=== PATIENT | female | born 1975 | race Caucasian/White ===

== ENCOUNTER → 2017-04-15 | Outpatient (CLI) | END | disposition home or self-care (01) ==

== ENCOUNTER 2017-07-02 05:53 | Day surgery (SDC) | END 2017-07-02 10:50 | disposition home or self-care (01) ==

== ENCOUNTER → 2017-07-13 | Outpatient (CLI) | END | disposition home or self-care (01) ==

== ENCOUNTER 2018-03-10 07:05 | Inpatient (IN) | payer OTHER ==
--- NOTE | 2018-03-09 07:45 | PREOPHP ---
DATE OF ADMISSION: 03/10/2018 This patient is coming on , 03/10/2018, for a surgical procedure. HISTORY OF PRESENT ILLNESS: This is a 43-year-old female, 0, para 0. This patient has seen me recently at the end of October due to pelvic pain, abnormal uterine bleeding, and heavy periods. The patient has been having anemia. Her periods are extremely heavy with clots. She had lived in [facility] for the last 30 years and she is getting [place] the states and moving to [place]. She req uests an alleviation of her pain and bleeding and ultrasound revealed that she had large pelvic rosalba s, for which an MRI was done. The MRI showed that there was an 8 cm left adnexal complex mass sugges tive of endometrioma and a right endometrioma of 3.3 cm. The uterus was anteverted 8 cm and there we re these adnexal masses. There were no inguinal lymphadenopathy, no pelvic lymphadenopathy, no ascit es, and there was no suspicious uterine mass. The patient is undergoing a laparoscopy to determine t he etiology of these masses and if they are endometriomas, to try to remove them, it is possibly to g et the endometriomas treated for her complaint of pelvic pain and bleeding. The patient has no signs of fibroids on the MRI but the consistency of the uterus by pelvic examination was of a fibroid. James wright was advised for the laparoscopy and with the possibility of an exploratory laparotomy. PAST MEDICAL HISTORY: She had a left knee surgery and an appendectomy. ALLERGIES: SHE HAS NO ALLERGIES. MEDICATIONS: She is on no medication except for Aleve. REVIEW OF SYSTEMS: She has no cardiovascular events, no lung disease, no GI disease, no endocrine di sease, no neurological or orthopedic disease. Her control usage is a diaphragm. FAMILY HISTORY: Noncontributory. SOCIAL HISTORY: She has no history of drugs. No history of smoking or drinking. PHYSICAL EXAMINATION: VITAL SIGNS: She is 5 feet 7 inches. She weighs 160. Blood pressure is 100/60. HEAD AND NECK: Normal. CHEST: Clear. HEART: Normal sinus rhythm. LUNGS: Clear. BREASTS: Soft, nontender, no masses. ABDOMEN: Soft, nontender, no masses. PELVIC: With normal external genitalia, normal vagina. The cervix is healthy. Uterus is bulky with early fibroid consistency and a large left ovarian mass palpated and a right ovarian mass palpated. EXTREMITIES: Normal with normal pulses and normal reflexes. No edema. DIAGNOSES: 1. Intractable pelvic pain and bleeding. 2. Bilateral ovarian endometriomas with a large left complex ovarian mass and a 3.3 cm right ovarian complex mass. 3. Early fibroid uterus. PLAN: She is undergoing a pelviscopy, possible exploratory laparotomy. She has been advised of the possible risks and possible complications of the surgery with her alternatives and options. Written information was provided. She had no more questions and agreed to go ahead with the procedure with f ull understanding and no more questions. Dictated By: NAHID VAN/NTS Conf#: [id number] DID#: [id number]
[2018-03-10] VITALS (25 sets, daily range): BP systolic 90–123; BP diastolic 35–76; PULSE 62–98; RESP 12–35; Ht 170.2 cm; Wt 76.9 kg
[~2018-03-10] VITALS: Ht 170.2 cm; Wt 76.9 kg
[~2018-03-10 07:05] MED LIST: GLYCOPYRROLATE 0.4 MG INJ ONE; NEOSTIGMINE 3 MG/3 ML SYRINGE ONE
[2018-03-10] MEDS ORDERED: CEFAZOLIN 2 GM/50 ML (PMX) 50 ML IVPB ONE (08:00)
--- NOTE | 2018-03-10 11:09 | PREAC ---
Date/Time of Note Date/Time of Note DATE: 03/10/18 TIME: 11:08 Anesthesia Eval and Record Evaluation Time Pre-Procedure Interview DATE: 03/10/18 TIME: 11:08 Age 43 Sex female NPO: 8 hrs Preoperative diagnosis Rt/Lt ovarian cysts Planned procedure Rt/Lt ovarian cystectomy Past Medical History Past Medical History: None Surgery & Anesthesia Issues No known issue Meds Anticoagulation: No Beta Lala within 24 hr: No Reason Beta Lala not given: Pt. not on B-Lala No Active Prescriptions or Reported Meds Meds reviewed: Yes Allergies Coded Allergies: No Known Allergy (Unverified , 03/10/18) Allergies Reviewed: Yes Labs/Studies Labs Reviewed: Reviewed by anesthesiologist test: Negative Studies: ECG Pre-procedure Exam Last vitals Vital Signs Date Temp Pulse Resp B/P (MAP) Pulse Ox O2 O2 Flow FiO2 Time Delivery Rate 03/10/18 97.3 71 16 115/76 98 09:40 (89) Airway: Adequate mouth opening, Adequate thyromental dist Mallampati: Mallampati II Teeth: Normal Lung: Normal Heart: Normal ASA Physical Status ASA physical status: 2 Emergency: None Planned Anesthetic General/MAC: ETT Neuraxial: Spinal Planned Pain Management Sub-arachniod narcotics, Parenteral pain med Pre-operative Attestations Prior to commencing anesthesia and surgery, the patient was re-evaluated, there was verification of: *The patient's identity *The results of appropriate recent lab work and preoperative vital signs *The above evaluation not changing prior to induction *Anesthetic plan, risk benefits, alternative and complications discussed with patient/family; questions answered; patient/family understands, accepts and w ishes to proceed. TEMI APONTE MD Mar 10, 2018 11:09
[2018-03-10] MEDS ORDERED: MIDAZOLAM 1 MG/ML 2 ML INJ ONE (11:11)
[2018-03-10] MEDS ORDERED: FENTAnyl 50 MCG/ML VIAL ONE (11:11)
[2018-03-10] MEDS ORDERED: morphine SULFATE/PF (10 MG/10 ML) INJ ONE (11:13)
[2018-03-10] MEDS ORDERED: METHYLENE BLUE 1% 10 ML INJ ONE (12:49)
[2018-03-10] MEDS ORDERED: ONDANSETRON 4 MG INJ ONE (13:44)
[2018-03-10] MEDS ORDERED: LIDOCAINE 2% (SDV) 5 ML INJ ONE (13:44)
[2018-03-10] MEDS ORDERED: PROPOFOL 20 ML ONE (13:44)
[2018-03-10] MEDS ORDERED: METOCLOPRAMIDE 10 MG INJ ONE (13:44)
[2018-03-10] MEDS ORDERED: ROCURONIUM 50 MG INJ ONE (13:44)
[2018-03-10] MEDS ORDERED: CEFAZOLIN 1 GM INJ ONE (13:47)
[2018-03-10] MEDS ORDERED: KETOROLAC 30 MG INJ IV SCH (14:00)
[2018-03-10] MEDS ORDERED: DIPHENHYDRAMINE 50 MG CAP PO PRN (14:00)
[2018-03-10] MEDS ORDERED: BISACODYL (EC) 5 MG TAB PO PRN (14:00)
[2018-03-10] MEDS ORDERED: ZOLPIDEM 5 MG TAB PO PRN (14:00)
[2018-03-10] MEDS ORDERED: ONDANSETRON INJ 6 MG in DEXTROSE 5% 50 ML IVPB PRN (14:00)
[2018-03-10] MEDS ORDERED: HYDROCODONE/APAP (5/325) TAB PO PRN ×2 (14:00)
--- NOTE | 2018-03-10 14:09 | PAC ---
Date/Time of Note Date/Time of Note DATE: 03/10/18 TIME: 14:08 Post-Anesthesia Notes Post-Anesthesia Note Last documented vital signs Vital Signs Date Temp Pulse Resp B/P (MAP) Pulse Ox O2 O2 Flow FiO2 Time Delivery Rate 03/10/18 97.3 71 16 115/76 98 09:40 (89) Activity: WNL Respiratory function: WNL Cardiovascular function: WNL Mental status: Baseline Pain reasonably controlled: Yes Hydration appropriate: Yes Nausea/Vomiting absent: Yes Comments BP:127,56, pulse:78, spo2:100%, T:98,8 TEMI APONTE MD Mar 10, 2018 14:09
--- NOTE | 2018-03-10 14:14 | SIPON ---
Date/Time of Note Date/Time of Note DATE: 03/10/18 TIME: 14:08 Operative Report Preoperative Diagnosis Intractable pelvic pain and bleeding Bilateral ovarian endometrioma Large left complex ovarian mass 3.3 cm right ovarian complex mass Early fibroid uterus Postoperative Diagnosis Left large broad ligament cyst severe left adnexal adhesions Left hydrosalpinx. Previous left tubo-ovarian abscess right tubal adhesions. right tubal patency liver adhesions Operation/Procedure Performed Pelviscopy exploratory laparotomy Evacuation of left broad ligament cyst Left adnexal adhesional lysis Right adnexal adhesional lysis Hydrotubation Surgeon see signature line operator/assistant foreman electrical assembly technician Anesthesia: general Estimated blood loss: 10 - 50 ml's Transfusion Required none Specimen Cyst fluid Grafts/Implants none Complications none NAHID OBANDO MD Mar 10, 2018 14:14
[2018-03-10] MEDS ORDERED: MEPERIDINE 25 MG INJ IV PRN (14:30)
[2018-03-10] MEDS ORDERED: NALOXONE (0.4 MG/ML) INJ IV PRN (14:30)
[2018-03-10] MEDS ORDERED: ONDANSETRON 4 MG INJ IV PRN (14:30)
[2018-03-10] MEDS ORDERED: DIPHENHYDRAMINE 50 MG INJ IV PRN (14:30)
[2018-03-10] MEDS ORDERED: HYDROmorphONE 1 MG/5 ML IV SYRINGE IV PRN ×2 (14:30)
[2018-03-10] MEDS ORDERED: METOCLOPRAMIDE 10 MG INJ IV PRN (14:30)
[2018-03-10] MEDS ORDERED: FENTAnyl 50 MCG/ML VIAL IV PRN (14:30)
--- NOTE | 2018-03-10 15:12 | OPR ---
DATE OF OPERATION: 03/10/2018 OPERATION PERFORMED: Pelviscopy, exploratory laparotomy, evacuation of left broad ligament cyst, le ft adnexal adhesiolysis, right adnexal adhesiolysis, hydrotubation. SURGEON: Nahid Abdi MD BRUSHING MACHINE OPERATOR: technical support assistant. ANESTHESIA: Dr. Roth with general anesthesia and Duramorph. PREOPERATIVE DIAGNOSES: 1. Intractable pelvic pain and bleeding. 2. Bilateral ovarian endometrioma, large left complex ovarian mass. 3. Right 3.3 cm ovarian complex mass; early fibroid uterus. POSTOPERATIVE DIAGNOSES: 1. Large left broad ligament cyst. 2. Severe left adnexal adhesions. 3. Left hydrosalpinx. 4. Previous left tubo-ovarian abscess. 5. Right tubal adhesions, right tubal patency. 6. Liver adhesions. COMPLICATIONS: None. DESCRIPTION OF PROCEDURE: The patient was given general anesthesia and Duramorph anesthesia, placed in the lithotomy position. The abdomen, perineal and vaginal area was prepped and draped and a Cordero catheter was placed in the bladder. A HUMI was inserted inside the uterus for uterine manipulation. The pelviscopy was started by making a small incision over the inferior edge of the umbilicus and th e incision of the fascia was done and the peritoneum was entered bluntly. The Becker was inserted an d the 10 mm scope was placed and visualization of the cavity revealed that there was a very large cys t on the left side of the pelvic area. The second trocar and cannula was placed suprapubically over the midline and the visualization of the area revealed that the uterus appears to be normal size. Th ere was a giant cyst next to the uterus that was involving the round ligament and tube and it was ortiz y soft appearance and with no characterization for endometrioma. The right ovary appeared to be norm al. The right tube was completely adherent to the back of the uterus. The left tube and ovary was n ot seen due to the large amount of fluid involving the adnexal area. Looking up the liver area there were large amount of adhesions that are possibly old and possibly consistent with an old pelvic infl ammatory disease with left tubo-ovarian abscess. The procedure was decided as an exploratory laparot steffany to be able to characterize this left ovarian cyst and to rule out malignancy. The gas was inflat ed and the incision was closed with an 0 Vicryl. The umbilical incision was closed with an 0 Vicryl and 3-0 Monocryl subcuticular to the skin incision and Dermabond. With the same incision used for th e midline trocar about 10 cm in length, the incision was made transversely and this is 2 cm up the pu bic bone. The abdomen was opened in layers without difficulties. The abdominal cavity was reached. The self-retaining retractor was placed and careful dissection of the area revealed that the cyst wa s coming from the broad ligament involving the left tube and ovary with adhesions, complete adhesions to the side of the pelvis and to the side of the uterus on this left side. The broad ligament was o pened and the fluid was collected and fluid was sent for cell block and culture. The fluid was yello wish brown with no pus. The left tube was completely lost with the adhesions and with hydrosalpinx a nd absolutely blocked with signs of inflammation with a hydrosalpinx. The left ovary was involved in severe adhesions on the left side along with a left hydrosalpinx. The adhesiolysis of the left ovar y was done with lysis of the left tube as well and a couple of stitches with 2-0 chromic were placed on the base of the adhesion of the left ovary for control of bleeding. Hemostasis was good. The cav ity was lavaged several times and hemostasis appears to be good. The left tube was not removed even though it needed to be removed due to the lack of consent by the patient and the wishes that she had for . The right tube was completely adherent in the back of the uterus and the adhesion was lysed and the right tube was freed. The right ovary had signs of endometriosis that were burned wit h bipolar instrument, and the ovary was not adherent on this side. The hydrotubation was done and th ere was free fluid coming through the right tube and not the left tube. The procedure was finished b y cleaning the whole abdomen with water and Fibrillar was placed on the volar area of the left side w here the lysis of adhesion of the ovary and tube was done. The right tube and ovary were covered wit h Intercede to prevent adhesions. The uterus looked normal with tiny fibroids. The cavity was close d after this using a 2-0 Vicryl suture after the sponge counts and instrument counts were correct, #0 PDS looped suture for the fascia, 2-0 Vicryl for the subcutaneous tissue, 3-0 Monocryl subcuticular to the skin, Dermabond and Steri-Strips. The patient tolerated the procedure well and left the OR a wake and stable. Sponge counts and instrument counts were correct. Intravenous antibiotics were giv en for prophylaxis. Blood loss was minimal. The urine was clear at the end of the procedure. Dictated By: NAHID VAN/MENDY Conf#: [id number] DID#: [id number]
[2018-03-10] MEDS: CEFAZOLIN 1 GM/50 ML (PMX) 50 ML IVPB SCH ×2 (16:51→21:15)
[2018-03-10] MEDS: LACTATED RINGER'S 1,000 ML IV SCH ×2 (16:52→23:46)
[2018-03-10] MEDS: METOCLOPRAMIDE 10 MG TAB PO SCH ×2 (18:20→23:46)
[2018-03-10] MEDS: KETOROLAC 30 MG INJ IV SCH (20:42)
[2018-03-11 02:00] VITALS: BP 111/72; PULSE 102; RESP 18
[2018-03-11] MEDS: KETOROLAC 30 MG INJ IV SCH ×4 (02:53→20:51)
[2018-03-11] MEDS: METOCLOPRAMIDE 10 MG TAB PO SCH ×4 (05:26→23:40)
[2018-03-11] MEDS: CEFAZOLIN 1 GM/50 ML (PMX) 50 ML IVPB SCH (05:26)
[2018-03-11 08:12] VITALS: BP 98/58; PULSE 96; RESP 19
--- NOTE | 2018-03-11 12:59 | PN ---
Date/Time of Note Date/Time of Note DATE: 03/11/18 TIME: 12:58 Assessment/Plan Lines/Catheters IV Catheter Type (from Nrsg): Saline Lock Cordero in Place (from Nrsg): No Subjective 24 Hr Interval Summary Day 1 post exploratory laparotomy Afebrile doing well Upper ready to the bathroom voiding\ Incision healing good Patient was explained about surgical findings and procedure She was very appreciative of it Encouraged ambulation Constitutional: no complaints Feeding: advancing diet Pain Control: mild Detailed Summary Eyes: no complaints ENT: no complaints Respiratory: no complaints Cardiovascular: no complaints Gastrointestinal: no complaints Genitourinary: no complaints Musculoskeletal: no complaints Skin: no complaints Neurologic: no complaints Endocrine: no complaints Lymphatic: no complaints Psychological: no complaints, nl mood/affect Immunologic: no complaints Exam/Review of Systems Vital Signs Vitals Vital Signs Date Temp Pulse Resp B/P (MAP) Pulse Ox O2 O2 Flow FiO2 Time Delivery Rate 03/11/18 98.2 96 19 98/58 (71) 97 08:12 03/10/18 Room Air 16:57 Intake and Output 03/10/18 03/10/18 03/11/18 1515:00 23:00 07:00 IntakeIntake Total 300 ml 1050 ml OutputOutput Total 175 ml 1100 ml 1000 ml BalanceBalance -175 ml -800 ml 50 ml Exam Constitutional: alert, oriented, well developed Psych: no complaints, nl mood/affect Head: normocephalic, atraumatic Eyes: nl conjunctiva, EOMI, nl lids, nl sclera ENMT: nl external ears & nose, nl lips & teeth, nl nasal mucosa & septum, mucosa pink and moist Neck: supple, non-tender Respiratory: clear to auscultation, normal air movement Cardiovascular: regular rate and rhythm, nl pulses Gastrointestinal: soft, nl liver, spleen, non-tender Musculoskeletal: nl extremities to inspection, nl gait and stance Extremities: normal pulses Neurological: SOFTWARE SUPPORT REPRESENTATIVE II-XII intact, nl mental status, nl speech, nl strength Skin: nl turgor, rash or lesions Lymph: nl lymph nodes Results Result Diagram: 03/11/18 0436 03/11/18 0436 NAHID OBANDO MD Mar 11, 2018 12:59
[2018-03-11] MEDS ORDERED: BISACODYL (EC) 5 MG TAB PO ONE (13:00)
[2018-03-11 14:22] VITALS: BP 115/59; RESP 18
[2018-03-11 20:27] VITALS: BP 100/55; PULSE 102; RESP 20
[2018-03-12] MEDS: KETOROLAC 30 MG INJ IV SCH ×4 (02:04→20:16)
[2018-03-12 02:15] VITALS: BP 105/58; PULSE 100; RESP 16
[2018-03-12] MEDS: METOCLOPRAMIDE 10 MG TAB PO SCH ×4 (05:25→23:56)
[2018-03-12 07:55] VITALS: BP 108/62; PULSE 100; RESP 16
--- NOTE | 2018-03-12 14:06 | DS ---
Date/Time of Note Date/Time of Note DATE: 03/12/18 TIME: 14:04 Discharge Summary Admission/Discharge Info Admit Date/Time Mar 10, 2018 at 13:58 Discharge Date/Time Mar 13, 2018 Discharge Diagnosis Left broad ligament cyst. Abdominal/pelvic adhesions. Ovarian endometrioma. Patient Condition: Good Procedures Pelviscopy, exploratory laparotomy, evacuation of left broad ligament cyst, left adnexal adhesiolysis, right adnexal adhesiolysis, hydrotubation. Hx of Present Illness see H and P Hospital Course Pt has done well postoperatively. She is on a regular diet today, has excellent pain control, and ambulating w/o assist. +flatus. No BM yet but did get cleaned out prior to surgery. Home Meds Active Scripts Acetaminophen with Codeine (Acetaminophen-Cod #3 Tablet) 1 Each Tablet, 1 TAB PO Q6H PRN for PAIN LEVEL 6-10, #20 TAB Prov:ELIANE VARGAS MD 03/12/18 Ibuprofen* (Ibuprofen*) 800 Mg Tablet, 800 MG PO Q6H PRN for PAIN LEVEL 1-5, #30 TAB Prov:ELIANE VARGAS MD 03/12/18 Follow-up Plan F/U with Dr Abdi in 2 weeks for an incision check. Primary Care Provider [facility] Time spent on discharge: < 30 minutes Pending Labs Pathology. ELIANE VARGAS MD Mar 12, 2018 14:06
[2018-03-12] MEDS ORDERED: ACET1TAB40 PO (14:14)
[2018-03-12] MEDS ORDERED: IBUP-1544 PO (14:14)
--- NOTE | 2018-03-12 14:15 | PD.PPDC ---
ACCOUNTING BOOKKEEPER Discharge Instruction Condition [id number] Patient Condition: [id number] Good Diet Salan2Hp Diet: [id number] Resume Regular Diet Activity/Restrictions [id number] Activity: [id number] Bedrest May be up to bathroom May be up for meals May Shower [id number] Restrictions: Gcfoy5s No Exercising No Lifting No Driving Minimize Walking Minimize Stair-climbing No Sexual Activity Nothing in the Vagina No [place] No Tampons, douche Wound/Drain Care Instructions [id number] Wound/Drain Care [id number] Remove Steri Strips in 2 Instructions: weeks Keep clean and dry Follow-up Follow-up with Physician: 2, Week/Weeks Return to clinic for [id number] SUPERVISOR RECEIVING AND PROCESSING Instructions: Utscx8l Fever greater than 101 Chills Worsening abdominal pain Excessive Vaginal Bleeding [id number] Surgical Instructions: [id number] Incisional Drainage Incisional Redness ELIANE VARGAS MD Mar 12, 2018 14:15
[2018-03-12 14:50] VITALS: BP 121/73; PULSE 96; RESP 17
[2018-03-12 19:28] VITALS: BP 117/70; PULSE 93; RESP 17
[2018-03-13 02:03] VITALS: BP 111/60; PULSE 89; RESP 20
[2018-03-13] MEDS: METOCLOPRAMIDE 10 MG TAB PO SCH (06:11)
[2018-03-13 07:42] VITALS: BP 117/72; PULSE 86; RESP 17
--- NOTE | 2018-03-16 14:38 | HPN ---
Date/Time of Note Date/Time of Note DATE: 03/16/18 TIME: 14:37 Interval H&P Admission Note Pt. seen H&P reviewed: No system changes NAHID OBANDO MD Mar 16, 2018 14:38
== END 2018-03-13 09:50 | disposition home or self-care (01) | DRG 743 ==
LOC: SDS 07:05 → REC 13:58 → SDS 13:58 → PP2 16:33
PROVIDERS: ADMIT Obstetrics & Gynecology; ATTEND Obstetrics & Gynecology
PROC: 0UN70ZZ Release Bilateral Fallopian Tubes, Open Approach (ICD-10-PCS; 2018-03-10)
PROC: 0U940ZZ Drainage of Uterine Supporting Structure, Open Approach (ICD-10-PCS; 2018-03-10)
PROC: 3E1P78Z Irrigation of Female Reproductive using Irrigating Substance, Via Natural or Artificial Opening (ICD-10-PCS; 2018-03-10)
PROC: 0UN10ZZ Release Left Ovary, Open Approach (ICD-10-PCS; principal; 2018-03-10 10:30)
PROC: 0WJJ4ZZ Inspection of Pelvic Cavity, Percutaneous Endoscopic Approach (ICD-10-PCS; 2018-03-10 10:30)
DX: N80.1 Endometriosis of ovary (principal); N70.11 Chronic salpingitis; Z53.31 Laparoscopic surgical procedure converted to open procedure; N73.6 Female pelvic peritoneal adhesions (postinfective); N94.89 Other specified conditions associated with female genital organs and menstrual cycle; D25.9 Leiomyoma of uterus, unspecified; N83.8 Other noninflammatory disorders of ovary, fallopian tube and broad ligament
CPT/HCPCS: 80051; 82565; 84520; 84703; 85025; 87070; 87075; 87086; J0690; J1885; J2250; J2274; J2405; J2710; J2765; J3010; J7120